=== PATIENT | male | born 1960 | race African-American/Black ===

== ENCOUNTER 2017-02-10 16:32 | Emergency (ER) | payer MEDICARE ==
[~2017-02-10] VITALS: Ht 180.3 cm; Wt 102.8 kg
[2017-02-10 17:02] LABS: BASOPHILS % 0.5 % (0.0-2.0); EOSINOPHILS % 0.6 % (0.0-5.0); HEMATOCRIT. 47.6 % (42.0-52.0); HEMOGLOBIN. 15.4 g/dL (14.0-18.0); LYMPHOCYTES % 28.6 % (20.0-50.0); MEAN CORPUSCULAR HEMOGLOBIN 28.9 pg (28.0-32.0); MEAN CORPUSCULAR VOLUME 89.7 fL (80.0-94.0); MEAN PLATELET VOLUME 10.5 fl (7.4-10.4); MONOCYTES % 13.8 % (2.0-8.0); NEUTROPHILS % 56.5 % (40.0-76.0); PLATELET 107 x1000/uL (130-400); RED BLOOD CELL COUNT 5.31 mill/uL (4.7-6.1); RED CELL DISTRIBUTION WIDTH 15.4 % (11.6-14.6)
[2017-02-10] MEDS ORDERED: ALTEPLASE 100MG/VIAL IV STA ×2 (17:07→17:28)
[2017-02-10 17:08] LABS: INR 1.3; PROTHROMBIN TIME 13.1 sec (9.4-11.6)
[2017-02-10] MEDS ORDERED: LABETALOL 5MG/ML SYR 20 MG/4 ML SYRINGE IV ONE (17:15)
[2017-02-10] MEDS ORDERED: LABETALOL HCL 20MG/4ML CARPUJECT IV ONE (17:15)
[2017-02-10 17:17] LABS: CARBON DIOXIDE 19 mEq/L (21-32); CHLORIDE 110 mEq/L (98-107); ETHANOL BLOOD < 10 mg/dL
[2017-02-10] MEDS ORDERED: ALTEPLASE IV STA (17:22)
[2017-02-10] MEDS ORDERED: ALTEPLASE 81 MG in BAG 1 EACH IV STA (17:28)
[2017-02-10] MEDS ORDERED: CARV25TA47 PO (18:52)
[2017-02-10] MEDS ORDERED: ISOS30TA6 PO (18:54)
[2017-02-10] MEDS ORDERED: METF-516 PO (18:58)
[2017-02-10] MEDS ORDERED: ROSU20TA PO (19:01)
[2017-02-10] MEDS ORDERED: HYDR-4134 PO (19:01)
[2017-02-10] MEDS ORDERED: MAGN400C PO (19:02)
[2017-02-10] MEDS ORDERED: FURO40TA5 PO (19:03)
[2017-02-10] MEDS ORDERED: POTA10CA42 PO (19:04)
[2017-02-10] MEDS ORDERED: ASPI-1159 PO (19:08)
[2017-02-10 19:31] VITALS: BP 141/105
== END 2017-02-10 19:42 | disposition short-term general hospital (02) ==
LOC: ER 16:46 → CANBEDREQ 17:45 → ER 19:42
DX: I63.9 Cerebral infarction, unspecified (principal); E11.9 Type 2 diabetes mellitus without complications; Z79.84 Long term (current) use of oral hypoglycemic drugs; Z79.82 Long term (current) use of aspirin
CPT/HCPCS: 36415; 70450; 71010; 80053; 82962; 84484; 85025; 85610; 93005; 96374; 96375; 99291; G0482; J2997; J3490; A4315